=== PATIENT | male | born 1980 | race Two or more races ===

== ENCOUNTER 2025-02-02 08:20 | Day surgery (SDC) | payer MEDICAID, SELFPAY ==
--- NOTE | 2025-01-28 15:23 | ESHP_ITS ---
RE: NEELAM GUZMAN : 1980 DATE OF ADMISSION: 01/28/2025 HISTORY OF PRESENT ILLNESS: A 44 year old gentleman with a history of a right- sided scrotal hydrocele for 6 months or so. PAST SURGICAL HISTORY: None. PAST MEDICAL HISTORY: No history of diabetes mellitus. No history of hypertension. SOCIAL HISTORY: He has one daughter. MEDICATIONS: None. ALLERGIES: NONE KNOWN. PHYSICAL EXAMINATION: Clinical examination reveals HEENT: Normal. Neck: Supple. Lungs: Clear. Cardiovascular: Heart sounds are normal. Abdomen: Soft without any organomegaly. No guarding. No rigidity. Extremities: Normal. Genitourinary: Phallus normal. Testes are down in scrotum. The patient has a right-sided scrotal hydrocele 4 inches in size. Left testis is normal. IMPRESSION: Right-sided scrotal hydrocele. PLAN: Right hydrocelectomy. Planned procedure risks and complications have been discussed. The patient has understood them and agreed to proceed. DT: 14:25:29 TT: 15:01:00 Ref: [id number] - TID: [id number]
--- NOTE | 2025-02-01 06:00 | EKG_ITS ---
[facility] Test Date: 2025-02-01 Pat Name: NEELAM GUZMAN Department: Room: - Gender: Male [employer] Technician: [facility] : 1980 Requested By: Wood Pruitt Order Number: [id number] Reading MD: Wood Pruitt Measurements Intervals [place] Rate: 65 P: 33 WV: 133 QRS: 38 QRSD: 102 T: 35 QT: 369 QTc: 385 Interpretive Statements SINUS RHYTHM No previous ECG available for comparison /store/S0/[id number].pdf
[2025-02-01 07:19] VITALS: BMI 26.8
[2025-02-01 07:46] LABS: Collection Type, Urine Clean Catch; Squamous Epithelial Cell,Urine 0 /hpf (0-5)
[2025-02-01 08:50] LABS: Basophils # (Auto) 0.1 Thou/mm3 (0.0-0.2); Basophils % (Auto) 1 % (0-2.5); Eosinophils # (Auto) 0.2 Thou/mm3 (0.0-0.5); Eosinophils % (Auto) 4 % (0-10); Hematocrit 49.5 % (41.0-53.0); Hemoglobin 16.5 g/dL (13.5-16.0); Immature Granulocytes Auto 0.03 Thou/mm3 (0.00-0.00); Lymphocytes # (Auto) 2.0 Thou/mm3 (1.0-4.8); Lymphocytes % (Auto) 33 % (10-50); Mean Corpuscular HGB Conc 33.3 g/dl (31.0-37.0); Mean Corpuscular Hemoglobin 30.7 pg (25.0-35.0); Mean Corpuscular Volume 92 fL (80-100); Monocytes # (Auto) 0.4 Thou/mm3 (0.0-0.8); Monocytes % (Auto) 6 % (0-12); Neutrophils # (Auto) 3.3 Thou/mm3 (1.8-7.7); Neutrophils % (Auto) 56 % (37-80); Nucleated Red Blood Cell # 0.00 Thou/mm3 (0.00-0.00); Nucleated Red Blood Cell % 0 /100 WBC (0); Platelet Count 256 Thou/mm3 (140-440); RDW Standard Deviation 41.4 fL (35.1-43.9); Red Blood Count 5.38 Miln/mm3 (4.50-5.90); White Blood Count 6.0 Thou/mm3 (3.8-10.6)
[2025-02-01 08:53] LABS: Anion Gap 7 (7-16); BUN/Creatinine Ratio 9 Ratio (12-20); Blood Urea Nitrogen 10 mg/dL (9-23); Calcium 9.1 mg/dL (8.3-10.6); Carbon Dioxide 29.7 mMol/L (20.0-31.0); Chloride 107 mMol/L (98-107); Creatinine (Component) 1.1 mg/dL (0.6-1.3); Estimated Creatinine Clearance 93.1 mL/min (>60); Glucose 99 mg/dL (74-106); Osmolality,Calculated 285 (275-295); Potassium 5.0 mMol/L (3.4-5.1); Sodium 144 mMol/L (136-145); eGFR > 60 See Note
[2025-02-01 09:18] LABS: Bilirubin,Urine Negative (Negative); Blood,Urine Negative (Negative); Clarity,Urine Clear (Clear/Hazy); Color,Urine Lt-Yellow (Lt Yel-Yel); Glucose, Urine Negative (Negative); Ketones,Urine Negative (Negative); Leukocyte Esterase,Urine Negative (Negative); Nitrite,Urine Negative (Negative); PH,Urine 7.5 (5.0-7.0); Protein,Urine Negative (Neg - Trace); RBC,Urine < 1 /hpf (0-3); Specific Gravity,Urine 1.022 (1.001-1.035); Urobilinogen,Urine Negative mg/dL (0.0-1.0); WBC,Urine < 1 /hpf (0-5)
--- NOTE | 2025-02-01 15:49 | SUR.PREOP ---
Pt notified to come in tomorrow at 0830.
[2025-02-02] VITALS (8 sets, daily range): BP systolic 102–137; BP diastolic 63–80; PULSE 65–87; RESP 12–19; TEMP 36.2–36.8; O2SAT 95–100; BMI 27.6
--- NOTE | 2025-02-02 09:20 | CHAP ---
Prayed with patient before procedure.
--- NOTE | 2025-02-02 11:24 | SUR.PHASEI ---
pt received from OR in recovery bay 1. pt asleep but responds to voice, breathing unlabored on oxymask 8l. v/s stable. pt dressing to scrotal area cdi. report received from Watson PAZ and Pino Hernandes.
--- NOTE | 2025-02-02 11:44 | SUR.PHASEII ---
Received report on pt. s/p surgery from [facility]. Pt. is resting with eyes closed, VSS, no c/o pain or nausea at this time. Dressing to scrotum CDI, scrotal support in place.
--- NOTE | 2025-02-02 12:18 | ESOP_ITS ---
RE: NEELAM SHERIFF : 1980 DATE OF OPERATION: 02/02/2025 PREOPERATIVE DIAGNOSIS: Large right scrotal hydrocele. POSTOPERATIVE DIAGNOSIS: Large right scrotal hydrocele with prominent appendix of right testis. PROCEDURE PERFORMED: Right hydrocelectomy with excision and fulguration of the appendix of the right testis. ANESTHESIA: General by Mr. Watson CRNA. INDICATION: The patient is a 44 year old gentleman who was referred to me with history of a large right scrotal hydrocele. He has a 4-5 inches size scrotal hydrocele, which is very tense. It has been bothering him and he wishes to have this corrected. He is now scheduled to have right hydrocelectomy. Planned procedure risks and complications have been discussed with the patient. The patient understood them and agreed to proceed. DESCRIPTION OF PROCEDURE: After the patient was brought to the operating table under adequate general anesthesia and supine position, parts were prepped and draped in the usual fashion. Right scrotal vertical incision was then made approximately 5-6 cm long. Skin and subcutaneous tissues were incised. Right hydrocele sac was dissected from all surrounding skin and then was opened. It contained a large amount of hydrocele fluid approximately 200 mL. There was a prominent appendix of the right testis, which was excised and fulgurated. Partial excision of the right hydrocele sac was then done and eversion of the sac was done behind the spermatic cord and I placed sutures of 3-0 chromic catgut to lindsey the hydrocele remaining sac. Complete hemostasis was obtained. Wound was closed in two layers first closing tunica dartos with continuous sutures of 3-0 chromic catgut and skin was closed in a similar fashion with 3-0 chromic catgut sutures. Local anesthetic was injected at the side of skin and sterile dressing was then applied. The patient was then transferred to the recovery room in a satisfactory condition having tolerated the entire procedure well. Sponge count and needle count at the end of the procedure was found to be correct. Estimated blood loss was approximately 5 mL. DT: 11:24:05 TT: 12:16:00 Ref: [id number] - TID: [id number]
--- NOTE | 2025-02-02 12:20 | SUR.PHASEII ---
Pt. meets criteria for discharge, VSS, no c/o pain or nausea at this time, IV discontinued without complications, dressing to scrotum CDI, scrotal support in place, discharge instructions provided to pt. and pt.'s with use of property underwriter services, verbalized understanding. Pt. was escorted to vehicle via w/c with all of belongings by staff.
== END 2025-02-02 12:20 | disposition home or self-care (01) ==
PROVIDERS: PCP Family Medicine; Referring Provider Surgery; Visit Provider Surgery
PROC: (CPT 55040; principal; 2025-02-02 10:30)
DX: N43.3 Hydrocele, unspecified (principal); Q55.29 Other congenital malformations of testis and scrotum; Z01.810 Encounter for preprocedural cardiovascular examination
CPT/HCPCS: 55040; 54512; 36415; 80048; 81001; 85025; 93005; A4217; A4649; J0131; J0690; J1171; J1885; J2250; J2704; J3010; J3490; L8330; A9270